=== PATIENT | male | born 1995 | race Two or more races ===

== ENCOUNTER 2024-12-18 13:39 | Emergency (ER) | payer BC, MEDICAID, SELFPAY ==
[2024-12-18] VITALS (11 sets, daily range): BP systolic 131–151; BP diastolic 58–73; PULSE 62–100; RESP 18–20; TEMP 36.8–39.3; O2SAT 93–100; BMI 23.1
--- NOTE | 2024-12-18 14:00 | XR_ITS ---
Examination: CT abdomen with intravenous contrast CT pelvis with intravenous contrast 2-D coronal reconstructions 2-D sagittal reconstructions Date and time of exam:December 18, 2024, 1751 hours. INDICATIONS:. CTDI: vol (mGy) rectal and abdominal pain, fever or discharge dark red stools beginning 3 days ago. DLP: (mGycm) 299. Technique: Multiple axial sections of the abdomen and pelvis have been obtained. 64 slice high-resolution scanner used. 3 mm axial sections have been obtained, post intravenous injection 60 cc Isovue 370. 2-D sagittal, coronal reconstructions obtained. Low dose protocols were performed. One or more of the following dose reduction techniques were used; automated exposure control, adjustment of the mA and/or KV according to patient size, use of iterative reconstruction technique. Findings: No focal liver or splenic lesions Small retrocardiac gastric hernia The appendix is partly visualized and not enlarged, no pericecal inflammatory change There is prominent hyperemia and wall thickening involving the sigmoid colon and rectum Urinary bladder intact Contracted gallbladder No pancreatic or adrenal mass. No renal or ureteral calculi No hydronephrosis Aorta normal size No bowel obstruction IMPRESSION: There is prominent hyperemia and wall thickening involving the sigmoid colon and rectum, significant colitis pattern, differential would include ulcerative colitis, Crohn's disease, clinical correlation advised
--- NOTE | 2024-12-18 14:01 | PD.EDRME ---
Rapid Medical Screening Exam RME Arrival date/time: 12/18/24 13:39 29-year-old male who reports having anal sex presents with concerns for rectal pain concerns for STD patient is febrile Chief Complaint: Urogenital-Male Time Seen by Provider: 12/18/24 13:46 Vital signs: Vital Signs Temperature 102.8 F H 12/18/24 13:55 Pulse Rate 100 12/18/24 13:55 Respiratory Rate 18 12/18/24 13:55 Blood Pressure 151/69 H 12/18/24 13:55 Pulse Oximetry (%) 99 12/18/24 13:55 Oxygen Delivery Method Room Air 12/18/24 13:55
[2024-12-18 14:34] LABS: Lactate (Lactic Acid) 1.7 mMol/L (0.4-2.0)
[2024-12-18 14:35] LABS: Collection Type, Urine Clean Catch; Squamous Epithelial Cell,Urine 0 /hpf (0-5)
[2024-12-18 14:39] LABS: Basophils # (Auto) 0.0 Thou/mm3 (0.0-0.2); Basophils % (Auto) 0 % (0-2.5); Eosinophils # (Auto) 0.0 Thou/mm3 (0.0-0.5); Eosinophils % (Auto) 1 % (0-10); Hematocrit 43.6 % (41.0-53.0); Hemoglobin 14.5 g/dL (13.5-16.0); Immature Granulocytes Auto 0.02 Thou/mm3 (0.00-0.00); Lymphocytes # (Auto) 1.8 Thou/mm3 (1.0-4.8); Lymphocytes % (Auto) 25 % (10-50); Mean Corpuscular HGB Conc 33.3 g/dl (31.0-37.0); Mean Corpuscular Hemoglobin 29.4 pg (25.0-35.0); Mean Corpuscular Volume 88 fL (80-100); Monocytes # (Auto) 1.0 Thou/mm3 (0.0-0.8); Monocytes % (Auto) 13 % (0-12); Neutrophils # (Auto) 4.5 Thou/mm3 (1.8-7.7); Neutrophils % (Auto) 61 % (37-80); Nucleated Red Blood Cell # 0.00 Thou/mm3 (0.00-0.00); Nucleated Red Blood Cell % 0 /100 WBC (0); Platelet Count 161 Thou/mm3 (140-440); RDW Standard Deviation 39.8 fL (35.1-43.9); Red Blood Count 4.94 Miln/mm3 (4.50-5.90); White Blood Count 7.4 Thou/mm3 (3.8-10.6)
[2024-12-18 15:03] LABS: Alanine Aminotransferase 11 U/L (10-49); Albumin, Serum 4.7 gm/dL (3.5-5.0); Albumin/Globulin Ratio 1.8 (1.2-2.2); Alkaline Phosphatase 81 U/L (46-116); Anion Gap 9 (7-16); Aspartate Amino Transferase 19 U/L (0-34); BUN/Creatinine Ratio 11 Ratio (12-20); Bilirubin,Total 0.5 mg/dL (0.3-1.2); Blood Urea Nitrogen 13 mg/dL (9-23); Calcium 10.0 mg/dL (8.3-10.6); Calcium (Corrected) 10.0 mg/dL (8.5-10.1); Carbon Dioxide 27.8 mMol/L (20.0-31.0); Chloride 101 mMol/L (98-107); Creatinine (Component) 1.2 mg/dL (0.6-1.3); Estimated Creatinine Clearance 89.5 mL/min (>60); Globulin 2.6 gm/dL (2.3-3.5); Glucose 137 mg/dL (74-106); Osmolality,Calculated 277 (275-295); Potassium 4.0 mMol/L (3.4-5.1); Procalcitonin 0.19 ng/ml (0.0-0.49); Sodium 138 mMol/L (136-145); Total Protein 7.3 gm/dL (5.7-8.2); eGFR > 60 See Note
[2024-12-18 15:17] LABS: Bacteria,Urine Rare; Bilirubin,Urine Negative (Negative); Blood,Urine Negative (Negative); Clarity,Urine Clear (Clear/Hazy); Color,Urine Lt-Yellow (Lt Yel-Yel); Glucose, Urine Negative (Negative); Ketones,Urine Negative (Negative); Leukocyte Esterase,Urine Negative (Negative); Nitrite,Urine Negative (Negative); PH,Urine 6.0 (5.0-7.0); Protein,Urine Trace (Neg - Trace); RBC,Urine 2 /hpf (0-3); Specific Gravity,Urine 1.020 (1.001-1.035); Urobilinogen,Urine Negative mg/dL (0.0-1.0); WBC,Urine 4 /hpf (0-5)
[2024-12-18 16:09] LABS: Syphilis Nonreactive (Nonreactive)
--- NOTE | 2024-12-18 17:45 | PC.NURSE ---
PT RESTING COMFORTABLY IN ROOM W/ MASK ON. DOOR TO ROOM CLOSED. IV STARTED W/O DIFFICULTY BY CRISTY IRONER HAND. CONVERSING W/ PT AND PREPARING PT FOR CT SCAN. WILL CONTINUE TO MONITOR.
[2024-12-18] MEDS: SODIUM CHLORIDE 0.9% 1000 ML 1,000 ML 999 ML IV (17:48)
[2024-12-18] MEDS: ACETAMINOPHEN 500 MG TABLET 1000 MG PO (17:48)
--- NOTE | 2024-12-18 17:48 | PD.EDGIBLD ---
ED GI Bleed RME/HPI General Chief complaint: Urogenital-Male Stated complaint: needs STD treatment Time Seen by Provider: 12/18/24 13:46 Arrival date/time: 12/18/24 13:39 Limitations: no limitations RME / HPI RME / HPI Narrative: Patient is a 29-year-old male who is here today with diffuse myalgias, abdominal pain, and states he has had some dark red stool with mucus for the past 2 to 3 days. He denies any chronic medical illness. He states he is sexually active. He has male partners and has unprotected rectal intercourse. He states has had 5 different partners in the past year. He states he has a history of either gonorrhea, or chlamydia, that has been treated in the past. He is not sure which disease he had. He denies any urinary frequency, dysuria, or skin lesions. He has no rashes or itching. He has no other acute complaints. Related Data Previous Rx's ?Medication ?Instructions ?Recorded albuterol sulfate 90 mcg/actuation 2 puff inhalation QID PRN 06/06/20 aerosol inhaler shortness of breath or wheezing #18 grams cetirizine 10 mg tablet (Zyrtec) 10 mg PO QDAY #30 tabs 06/06/20 sodium chloride 0.65 % nasal spray 2 spray intranasal QID #60 mL 06/06/20 aerosol (Saline Nasal) ciprofloxacin HCl 500 mg tablet 500 mg PO BID #14 tabs 12/18/24 (Cipro) metronidazole 500 mg tablet 500 mg PO BID 7 days #14 tabs 12/18/24 Allergies Allergy/AdvReac Type Severity Reaction Status Date / Time No Known Allergies Allergy Verified 12/18/24 13:43 Review of Systems Review of Systems Systems Reviewed: All systems reviewed, normal except as documented ED Exam General Limitations: Present no limitations General appearance: Present alert and in no apparent distress Head Head exam: Present atraumatic Eye Eye exam: Present normal appearance, PERRL and EOMI ENT ENT exam: Present normal exam, normal oropharynx and mucous membranes moist Neck Neck exam: Present normal inspection, full ROM and trachea midline Chest Chest inspection: Present normal inspection and symmetric chest wall rise Respiratory Respiratory exam: Present normal lung sounds bilaterally Cardiovascular Cardiovascular exam: Present regular rate, normal rhythm and normal heart sounds Abdominal Exam Abdominal exam: Present soft; Absent distention Extremities Exam Extremities exam: Present normal inspection and full ROM Back Exam Back exam: Present normal inspection and full ROM Neurological Exam Neurological exam: Present alert and oriented X3 Psychiatric Psychiatric exam: Present normal affect and normal mood Skin Skin exam: Present warm, dry, intact and normal color Course Quality Measures none Orders Category Date Time Status Bedside COVID-19 Antigen Test NOW Care 12/18/24 14:00 Completed Bedside Influenza A&B Antigen Test NOW Care 12/18/24 14:[address] Screening NOW Care 12/18/24 14:01 Completed Insert IV NOW Care 12/18/24 14:00 Completed Occult Blood,Stool (Nursing) ONCE Care 12/18/24 17:[address] abdomen pelvis w con Stat Exams 12/18/24 14:00 Completed Blood Culture (Lab) Stat Lab 12/18/24 14:24 Received CBC Stat Lab 12/18/24 14:29 Completed Chlamydia/GC/TV - PCR Stat Lab 12/18/24 14:25 Received Comprehensive Metabolic Panel Stat Lab 12/18/24 14:29 Completed HIV RAPID [HIV (1&2) Antibody Rapid] Stat Lab 12/18/24 14:29 Completed Hepatitis Acute Panel Stat Lab 12/18/24 14:29 Completed Lactate (Lactic Acid) Stat Lab 12/18/24 14:29 Completed Procalcitonin Stat Lab 12/18/24 14:29 Completed Syphilis Stat Lab 12/18/24 14:29 Completed Urinalysis Stat Lab 12/18/24 14:25 Completed Urine Culture Stat Lab 12/18/24 14:25 Received Acetaminophen Tab [Tylenol ES Tab] Med 12/18/24 14:00 Discontinued 1,000 mg PO X1 ONE Azithromycin Po [Zithromax PO] Med 12/18/24 17:45 Discontinued 500 mg PO X1 ONE Sodium Chloride 0.9% 1000 ml [Ns] 1,000 ml Med 12/18/24 14:00 Discontinued IV 999 mls/hr cefTRIAXone [Rocephin] 1,000 mg Med 12/18/24 17:45 Discontinued SODIUM CHLORIDE 0.9% (Popper) [Ns 0.9% (P)] 50 ml IV QDAY cefTRIAXone/D5w 1gm IV premix [Rocephin/D5w 1gm IV Med 12/18/24 18:00 Discontinued premix] 1 gm in 50 ml IV QDAY@1400 Vital Signs Vital signs: Vital Signs Temperature 102.8 F H 08/19/25 13:55 Pulse Rate 100 12/18/24 13:55 Respiratory Rate 18 12/18/24 13:55 Blood Pressure 151/69 H 12/18/24 13:55 Pulse Oximetry (%) 99 12/18/24 13:55 Oxygen Delivery Method Room Air 12/18/24 13:55 GI Bleed MDM Narrative MDM Narrative:: Patient is a 29-year-old male who is here today with diffuse myalgias, abdominal pain, and states he has had some dark red stool with mucus for the past 2 to 3 days. He denies any chronic medical illness. He states he is sexually active. He has male partners and has unprotected rectal intercourse. He states has had 5 different partners in the past year. He states he has a history of either gonorrhea, or chlamydia, that has been treated in the past. He is not sure which disease he had. He denies any urinary frequency, dysuria, or skin lesions. He has no rashes or itching. He has no other acute complaints. On exam, patient is nontoxic-appearing in no visible signs of distress. He arrived with a fever 102.8, that resolved in the ER was reduced is 98.3 Fahrenheit. His workup revealed the following CBC Thill no leukocytosis or significant anemia. Metabolic panel was unremarkable. UA was unremarkable. HIV screen was negative. Patient received a dose of azithromycin and ceftriaxone here. CT was obtained which revealed hyperemia and wall thickening at the sigmoid colon and rectum. This discussed with our on-call emergency communications operator at approximately [address] Aponte with gastroenterology recommends outpatient treatment with ciprofloxacin and Flagyl. This were discussed with the patient. He will be discharged in the ER at this time. He agrees to follow-up with his clinic as needed. Return here for any worsening changes at any time. Patient data External records reviewed:: None Clinical information provided by:: patient Social determinants that could affect healthcare access:: none Patient has the following chronic illnesses:: n/a How is presenting disease/condition affected by chronic disease/condition?: no chronic disease Evaluation data The following diagnostics were reviewed and interpreted by me:: lab results and radiology exam(s) Lab and/or radiology exams considered but not ordered:: n/a Interpretation Summary: Colitis Medications / Prescriptions Medications or Prescriptions considered but not ordered:: n/a Medication administrations:: Medication Administration History Discontinued Medications Acetaminophen (Acetaminophen 500 Mg Tablet) 1,000 mg PO X1 ONE Stop: 12/18/24 14:01 Last Admin: 12/18/24 17:48 Dose: 1,000 mg Documented By: YOLANDA Azithromycin (Azithromycin 250 Mg Tablet) 500 mg PO X1 ONE Stop: 12/18/24 17:46 Last Admin: 12/18/24 18:00 Dose: 500 mg Documented By: YOLANDA Sodium Chloride (Ns) 1,000 mls @ 999 mls/hr IV .Q1H1M ONE Stop: 12/18/24 15:00 Last Infusion: 12/18/24 19:15 Dose: Infused Documented By: Admin: 12/18/24 17:48 Dose: 999 mls/hr Documented By: YOLANDA Ceftriaxone Sodium 1,000 mg/ (Sodium Chloride) 50 mls @ 100 mls/hr IV QDAY [facility] Stop: 12/25/24 17:44 Last Admin: 12/18/24 19:54 Dose: Not Given Documented By: HAFSA Non-Admin Reason: Duplicate Medication on eMAR Ceftriaxone Sodium/Dextrose (Rocephin/D5w 1gm Iv Premix) 1 gm in 50 mls @ 100 mls/hr IV QDAY@1400 [facility] Stop: 12/25/24 17:59 Last Infusion: 12/18/24 18:57 Dose: Infused Documented By: Admin: 12/18/24 18:25 Dose: 100 mls/hr Documented By: YOLANDA See above Consultations Consultation(s) initiated? (list below): Yes Diagnosis GI bleed differential diagnosis: infectious diarrhea and Upper gastrointestinal hemorrhage Most likely diagnosis given after review of the tests above:: Colitis Admission Indicated Admission indicated?: not indicated Admission Request Was there a request for admission?: No Disposition Plan Disposition Plan: Discharge Discharge Attestation Discharge Attestation: The patient and all family members were given an opportunity to ask questions and understood the discharge instructions. Discharge instructions specifically effects, indications for sooner follow up or return to the emergency department, and the expected course of current diagnosis. Patient condition: Stable Discharge Plan Plan Patient Disposition: HOME (Self Care) Patient condition on transfer: Stable Prescriptions/Referrals Prescriptions/Med Rec: New ciprofloxacin HCl [Cipro] 500 mg tablet 500 mg PO BID Qty: 14 0RF metronidazole 500 mg tablet 500 mg PO BID 7 Days Qty: 14 0RF No Action albuterol sulfate 90 mcg/actuation HFA aerosol inhaler 2 puff inhalation QID PRN (Reason: shortness of breath or wheezing) Qty: 18 0RF cetirizine [Zyrtec] 10 mg tablet 10 mg PO QDAY Qty: 30 0RF sodium chloride [Saline Nasal] 0.65 % aerosol,spray 2 spray intranasal QID Qty: 60 0RF Referrals: Timoteo Mtz MD [Primary Care Provider] - In 1 week Problem List Clinical Impression: Colitis, COVID-19 Patient/Caregiver Discharge Instructions Education Materials: COVID-19 Home Care Additional Instructions: - Maintain oral hydration. - Use the provided antibiotics as prescribed. - Use barrier protection methods with any sexual intercourse. - Return to the emergency room at anytime for any worsening or emergent changes. Print Language: German Stand Alone Forms: [employer] Patient Portal Info Letter
[2024-12-18] MEDS: AZITHROMYCIN 250 MG TABLET 500 MG PO (18:00)
--- NOTE | 2024-12-18 18:15 | PC.NURSE ---
CORRECTION: CRISTY IS A PA NOT AN FIELD TALENT QUALIFICATION SPECIALIST.
[2024-12-18] MEDS: cefTRIAXone/D5w 1gm IV premix 1 GM/50 ML BAG IV (18:25)
[2024-12-18 19:05] LABS: HIV (1&2) Antibody Rapid Non-Reactive
[2024-12-18 20:57] LABS: Hepatitis A Antibody IgM Non Reactive (Non React); Hepatitis B Core Antibody IgM Non Reactive (Non React); Hepatitis B Surface Antigen Non Reactive (Non React); Hepatitis C Antibody Non Reactive (Non React)
[2024-12-21 18:16] LABS: Chlamydia trachomatis PCR Negative (Not Detect); Neisseria Gonorrhoeae DNA PCR Negative (Not Detect); Trichomonas Negative (Negative)
== END 2024-12-18 21:18 | disposition home or self-care (01) ==
PROVIDERS: Nurse Practitioner Primary Care; Physician Assistant Medical; Emergency Provider Family Medicine; PCP Family Medicine
DX: K52.9 Noninfective gastroenteritis and colitis, unspecified (principal); U07.1 COVID-19
CPT/HCPCS: 36415; 74177; 80053; 80074; 81001; 83605; 84145; 85025; 86703; 86780; 87015; 87040; 87045; 87046; 87086; 87400; 87491; 87493; 87591; 87661; 87811; 87899; 96361; 96365; 99284; A4649; J0696; J7030; Q9967; A9270

== ENCOUNTER 2024-12-23 10:33 | Emergency (ER) | payer BC, MEDICAID, SELFPAY ==
[2024-12-23 10:34] VITALS: BMI 23.5
[2024-12-23 10:51] VITALS: BP 112/70; PULSE 98; RESP 19; TEMP 37.2; O2SAT 97
--- NOTE | 2024-12-23 11:00 | EDNOTE_ITS ---
Nausea/Vomit./Diarrhea-RME/HPI General Chief complaint: Nausea/Vomiting/Diarrhea Stated complaint: NAUSEA FROM PRESCRIBED MEDS FROM TUESDAY Time Seen by Provider: 12/23/24 10:45 Arrival date/time: 12/23/24 10:33 RME / HPI RME / HPI Narrative: patient recently diagnosed with colitis adn covid. has been taking abx as prescribed and is concerned abx are making diarrhea worse. denies f,c,n,v,abd pain, dysuria, melena, bloody stools. continues to have diarrhea. Related Data Previous Rx's ?Medication ?Instructions ?Recorded albuterol sulfate 90 mcg/actuation 2 puff inhalation Q ID PRN 06/06/20 aerosol inhaler shortness of breath or wheez ing #18 grams cetirizine 10 mg tablet (Zyrtec) 10 mg PO QDAY #30 tab s 06/06/20 sodium chloride 0.65 % nasal spray 2 spray intranasal QID #60 mL 06/06/20 aerosol (Saline Nasal) ciprofloxacin HCl 500 mg tablet 500 mg PO BID #14 tabs 12/18/24 (Cipro) Allergies Allergy/AdvReac Type Severity Reaction Status Date / Time No Known Allergies Allergy Verified 12/23/24 10:36 Course Quality Measures none Vital Signs Vital signs: Vital Signs Temperature 99.0 F 12/23/24 10:51 Pulse Rate 98 12/23/24 10:51 Respiratory Rate 19 12/23/24 10:51 Blood Pressure 112/70 12/23/24 10:51 Pulse Oximetry (%) 97 12/23/24 10:51 Oxygen Delivery Method Room Air 12/23/24 10:51 Nausea/Vomiting/Diarrhea MDM Narrative MDM Narrative:: Patient states that he is able to tolerate both antibiotics when he cuts the pills and has and takes them progressively throughout the day. Given that patient is taking the appropriate antibiotic he is tolerating well, states that he has no side effects when he cut the pills in half, recommend they continue taking the antibiotic. He has no respiratory distress, no chest pain abdominal pain no difficulty breathing when taking antibiotics. Do not suspect that this is an allergic reaction. Advised him to hydrate well. No anal penetration until completely healed and cleared by his primary care doctor. On exam patient also had a 2 mm punctate lesion on the anus, not actively blee ding, no fluctuance crepitus not vesicular no purulence. Discussed close monitoring at home, given that it is minimally painful, not vesicular less likely herpes at this time however if he develops vesicles or worsening pain support that he return to the emergency department for further evaluation. Patient data External records reviewed:: [facility] previous records Clinical information provided by:: patient Social determinants that could affect healthcare access:: none Patient has the following chronic illnesses:: none How is presenting disease/condition affected by chronic disease/condition?: no chronic disease Evaluation data The following diagnostics were reviewed and interpreted by me:: other (specify) Lab and/or radiology exams considered but not ordered:: none Interpretation Summary: see above Medications / Prescriptions Medications / Prescriptions considered but not ordered:: none Medication administrations:: see above Consultations Consultation(s) initiated? (list below): No Diagnosis Nausea Differential Diagnosis: traveler's diarrhea, food poisoning, gastroenteritis and drug-induced nausea and vomiting Most likely diagnosis given after review of the tests above:: diarrhea Admission Indicated Admission indicated?: not indicated Admission Request Was there a request for admission?: No Disposition Plan Disposition Plan: Discharge Discharge Attestation Discharge Attestation: The patient and all family members were given an opportunity to ask questions and understood the discharge instructions. Discharge instructions specifically effects, indications for sooner follow up or return to the emergency department, and the expected course of current diagnosis. Patient condition: Stable Discharge Plan Plan Patient Disposition: HOME (Self Care) Prescriptions/Referrals Prescriptions/Med Rec: No Action albuterol sulfate 90 mcg/actuation HFA aerosol inhaler 2 puff inhalation QID PRN (Reason: shortness of breath or wheezing) Qty: 18 0RF cetirizine [Zyrtec] 10 mg tablet 10 mg PO QDAY Qty: 30 0RF sodium chloride [Saline Nasal] 0.65 % aerosol,spray 2 spray intranasal QID Qty: 60 0RF ciprofloxacin HCl [Cipro] 500 mg tablet 500 mg PO BID Qty: 14 0RF Problem List Clinical Impression: Colitis, COVID-19 Patient/Caregiver Discharge Instructions Education Materials: Understanding Colitis Additional Instructions: * Please follow-up with your primary care doctor within the next 1 to 2 days. If you are having a hard time tolerating your antibiotics please return to the emergency department so that we can look for an alternate regimen for management of her colitis. If you develop difficulty breathing, rashes or any other symptom concern please return to the emergency department immediately. Print Language: Kosovan Stand Alone Forms: [employer] Patient Portal Info Letter
== END 2024-12-23 11:29 | disposition home or self-care (01) ==
LOC: SERX 11:15
PROVIDERS: Emergency Provider Emergency Medicine; PCP Family Medicine
DX: K52.9 Noninfective gastroenteritis and colitis, unspecified (principal); U07.1 COVID-19
CPT/HCPCS: 99281